=== PATIENT | male | born 1975 | race Caucasian/White ===

== ENCOUNTER 2024-09-24 18:37 | Observation (INO) | payer OTHER ==
[2024-09-24] VITALS (7 sets, daily range): BP systolic 116–133; BP diastolic 64–88
[~2024-09-24] VITALS: Ht 182.9 cm; Wt 124.0 kg
[~2024-09-24 18:37] MED LIST: LISINOPRIL40 MG PO; TORADOL PO; ZPAK PO
[2024-09-24] MEDS ORDERED: ONDANSETRON HCl 4 MG/2 ML SDV IV ONE (19:30)
[2024-09-24] MEDS ORDERED: SODIUM CHLORIDE 0.9% 1,000 ML IV ONE (19:30)
[2024-09-24] MEDS ORDERED: ACETAMINOPHEN 1,000 MG/100 ML VIAL IV ONE (19:35)
[2024-09-24 19:51] LABS: BASO% 0.3 % (0-3); EOS% 0.2 % (0-8); HEMATOCRIT 45.7 % (39.0-50.0); HEMOGLOBIN 15.1 g/dl (14.0-18.0); IMMATURE GRANULOCYTES 2.1 % (0.0-5.0); LYMPH% 13.9 % (15-41); MEAN CELL VOLUME 88.9 fL CALC (80.0-100.0); MEAN CORPUSCULAR HGB 29.4 pG CALC (26.0-32.0); MONO% 13.4 % (2-13); NEUT# 8.2 thou/uL (1.82-7.42); NEUT% 70.1 % (42-76); RED BLOOD COUNT 5.14 mill/uL (4.70-6.10); RED CELL DISTRI WIDTH 12.8 % (11.5-15.5)
[2024-09-24 19:59] LABS: ALBUMIN 4.2 g/dL (3.2-5.0); BILIRUBIN, TOTAL 0.6 mg/dL (0.2-1.3); TOTAL PROTEIN 7.4 g/dL (6.3-8.2)
[2024-09-24] MEDS ORDERED: HYDROmorphone HCL 2 MG/AMP IV ONE ×2 (21:20→22:30)
[2024-09-24 22:22] LABS: URINE BILIRUBIN - DIPSTICK Negative (NEGATIVE); URINE BLOOD DIPSTICK Negative (NEGATIVE); URINE GLUCOSE - DIPSTICK Negative (NEGATIVE); URINE KETONE 15 mg/dL (NEGATIVE); URINE LEUK ESTERASE Negative (NEGATIVE); URINE NITRITE - DIPSTICK Negative (Negative); URINE PH 7.5 (4.5-8.0); URINE PROTEIN - DIPSTICK Negative (NEG-TRACE); URINE SPECIFIC GRAVITY 1.015; URINE UROBILINOGEN - DIPSTICK 0.2 E.U./dL (0.2)
[2024-09-24 22:23] LABS: URINE COLOR Yellow
[2024-09-24] MEDS ORDERED: PERCOCET 10/31 COMBO PO (22:46)
[2024-09-24] MEDS ORDERED: MUSCLE RELAXER (22:51)
[2024-09-24] MEDS ORDERED: MAGNESIUM HYDROXIDE 30 ML UDC PO PRN (23:00)
[2024-09-24] MEDS ORDERED: ACETAMINOPHEN 325 MG/TAB PO PRN (23:00)
[2024-09-24] MEDS ORDERED: Pantoprazole Sodium 40 MG VIAL (Protonix) IV SCH (23:00)
[2024-09-24] MEDS ORDERED: SODIUM CHLORIDE 0.9% 1,000 ML IV PRN (23:00)
[2024-09-24] MEDS ORDERED: HYDROmorphone HCL 2 MG/AMP IV PRN (23:00)
[2024-09-24] MEDS ORDERED: ONDANSETRON HCl 4 MG/2 ML SDV IV PRN (23:00)
[2024-09-25] VITALS (7 sets, daily range): BP systolic 117–150; BP diastolic 77–97
[2024-09-25 09:37] LABS: BASO% 0.2 % (0-3); HEMOGLOBIN 14.3 g/dl (14.0-18.0); IMMATURE GRANULOCYTES 2.1 % (0.0-5.0); LYMPH% 11.4 % (15-41); MEAN CELL VOLUME 88.8 fL CALC (80.0-100.0); MEAN CORPUSCULAR HGB 29.5 pG CALC (26.0-32.0); MEAN CORPUSCULAR HGB CONC 33.3 g/dL CAL (32.0-36.0); MONO% 16.4 % (2-13); NEUT# 5.93 thou/uL (1.82-7.42); NEUT% 69.9 % (42-76); RED BLOOD COUNT 4.84 mill/uL (4.70-6.10); RED CELL DISTRI WIDTH 12.9 % (11.5-15.5)
[2024-09-25 09:54] LABS: ALBUMIN 3.7 g/dL (3.2-5.0); BILIRUBIN, TOTAL 0.5 mg/dL (0.2-1.3); CREATININE 0.9 mg/dL (0.7-1.3); POTASSIUM 4.3 mmol/l (3.5-5.1); TOTAL PROTEIN 6.5 g/dL (6.3-8.2)
[2024-09-25] MEDS ORDERED: PROMETHAZINE HCL 25 MG/ML AMP IV PRN (10:25)
[2024-09-25] MEDS ORDERED: PIPERACILLIN Sodium-Tazobactam 3.375 GM in SODIUM CHLORIDE 0.9% 100 ML IV SCH (12:00)
[2024-09-25] MEDS ORDERED: guaiFENesin-CODEINE 200-20 MG/10 ML UDC PO PRN (17:00)
[2024-09-25] MEDS ORDERED: IPRATROPIUM-Albuterol 0.5MG-2.5MG/3 ML NEB SCH (19:00)
[2024-09-25] MEDS ORDERED: ENOXAPARIN SODIUM 40 MG/0.4 ML SYR SC SCH (21:00)
[2024-09-26] VITALS (7 sets, daily range): BP systolic 111–156; BP diastolic 79–103
[2024-09-26 05:05] LABS: BASO% 0.3 % (0-3); HEMATOCRIT 43.3 % (39.0-50.0); HEMOGLOBIN 14.4 g/dl (14.0-18.0); IMMATURE GRANULOCYTES 1.2 % (0.0-5.0); LYMPH% 16.3 % (15-41); MEAN CELL VOLUME 89.3 fL CALC (80.0-100.0); MEAN CORPUSCULAR HGB 29.7 pG CALC (26.0-32.0); MEAN CORPUSCULAR HGB CONC 33.3 g/dL CAL (32.0-36.0); MONO% 20.8 % (2-13); NEUT# 3.98 thou/uL (1.82-7.42); NEUT% 61.4 % (42-76); RED BLOOD COUNT 4.85 mill/uL (4.70-6.10)
[2024-09-26 05:24] LABS: ALBUMIN 3.7 g/dL (3.2-5.0); BILIRUBIN, TOTAL 0.4 mg/dL (0.2-1.3); CREATININE 0.8 mg/dL (0.7-1.3); POTASSIUM 4.1 mmol/l (3.5-5.1); TOTAL PROTEIN 6.6 g/dL (6.3-8.2)
[2024-09-26] MEDS ORDERED: CLARIFY DOSE PO PRN (05:50)
[2024-09-27 04:20] VITALS: BP 142/83
[2024-09-27 05:46] LABS: BASO% 0.7 % (0-3); EOS% 0.2 % (0-8); HEMATOCRIT 45.2 % (39.0-50.0); HEMOGLOBIN 15.1 g/dl (14.0-18.0); IMMATURE GRANULOCYTES 1.8 % (0.0-5.0); LYMPH% 46.9 % (15-41); MEAN CELL VOLUME 88.8 fL CALC (80.0-100.0); MEAN CORPUSCULAR HGB 29.7 pG CALC (26.0-32.0); MEAN CORPUSCULAR HGB CONC 33.4 g/dL CAL (32.0-36.0); MONO% 19.5 % (2-13); NEUT# 1.41 thou/uL (1.82-7.42); NEUT% 30.9 % (42-76); RED BLOOD COUNT 5.09 mill/uL (4.70-6.10); RED CELL DISTRI WIDTH 12.8 % (11.5-15.5)
[2024-09-27 05:59] LABS: ALBUMIN 3.6 g/dL (3.2-5.0); BILIRUBIN, TOTAL 0.4 mg/dL (0.2-1.3); MAGNESIUM 2.1 mg/dL (1.6-2.3); POTASSIUM 3.9 mmol/l (3.5-5.1); TOTAL PROTEIN 6.5 g/dL (6.3-8.2)
[2024-09-27 07:19] VITALS: BP 154/67
[2024-09-27] MEDS ORDERED: LEVOFLOXACIN500MG PO (11:18)
[2024-09-27] MEDS ORDERED: METRONIDAZOLE500 MG PO (11:20)
[2024-09-27] MEDS ORDERED: ROBITUSSIN200 MG/10 PO (11:21)
[2024-09-27] MEDS ORDERED: ZOFRAN4 MG/TAB PO (11:21)
[2024-09-27 12:42] VITALS: BP 128/68
== END 2024-09-27 13:12 | disposition home or self-care (01) ==
LOC: ED 18:37 → ED-I 19:38 → ED 19:38 → ED-I 22:15 → ED 23:02 → MS2 23:03
PROVIDERS: Nurse Practitioner Family; ADMIT Internal Medicine; ATTEND Internal Medicine
DX: K52.9 Noninfective gastroenteritis and colitis, unspecified (principal); I10 Essential (primary) hypertension; M54.9 Dorsalgia, unspecified; G89.29 Other chronic pain; F17.200 Nicotine dependence, unspecified, uncomplicated; Z20.822 Contact with and (suspected) exposure to COVID-19
CPT/HCPCS: G0378; J0131; J1171; J1650; J2405; J2470; J2543; J2550; Q9967